=== PATIENT | male | born 1970 | race Caucasian/White ===

== ENCOUNTER 2021-06-22 20:44 | Emergency (ER) | payer OTHER ==
[~2021-06-22] VITALS: Ht 172.7 cm; Wt 120.2 kg
[2021-06-22 21:03] VITALS: BP 153/83
--- NOTE | 2021-06-22 22:00 | NUR ---
TO BED AMBULATORY
--- NOTE | 2021-06-22 22:10 | NUR ---
TOMEKA PT. IS A 50 Y/O MALE THAT CAME INTO ED WITH C/O OF RIGHT MID BACK PAIN. DENIES TRAUMA/FALL. PT. STATES THAT HE WORKS FROM HOME AND HAS BEEN SITTING IN A CHAIR FOR LONG PERIODS OF TIME. PT. RATES PAIN AT 8/10 ON THE PAIN SCALE AT THIS TIME. WHEN ASKED TO DESCRIBE PAIN, PT. STATES "PULSATING AND SHARP" AND LOCALIZED IN RIGHT MID BACK. PT. ALSO STATES "WHEN I BREATHE DEEPLY, THERE IS A SHARP PAIN IN MY BACK." DENIES N/V/D; SKIN IS PINK/WARM/DRY; AAOX4 WITH EVEN AND STEADY GAIT; HR EVEN AND REGULAR; PT DENIES ANY FEVER, CP, SOB, OR COUGH AT THIS TIME; VSS; PATIENT POSITIONED FOR COMFORT; HOB ELEVATED; BEDRAILS UP X2; BED DOWN. ER MD MADE AWARE OF PT STATUS. PMH: HTN, PSORIASIS, HYPERLIPIDEMIA AND SLEEP APNEA ALLERGIES: NKA
[2021-06-22 23:13] LABS: APPEARANCE,URINE CLEAR (CLEAR); BILIRUBIN,URINE NEGATIVE (NEGATIVE); BLOOD, URINE NEGATIVE (NEGATIVE); COLOR,URINE YELLOW (YELLOW); LEUKOCYTE ESTERASE ,URINE NEGATIVE (NEGATIVE); NITRITE, URINE NEGATIVE (NEGATIVE); UGLUCOSE NEGATIVE (NEGATIVE)
[2021-06-22 23:32] LABS: BASOPHILS # (AUTO) 0.1 K/uL (0.00-0.22); BASOPHILS % (AUTO) 0.8 % (0.0-2.0); EOSINOPHILS # (AUTO) 0.5 K/uL (0-0.4); EOSINOPHILS % (AUTO) 4.9 % (0.0-4.0); HEMATOCRIT 42.6 % (36-52); HEMOGLOBIN 14.8 g/dL (12.0-18.0); LYMPHOCYTES # (AUTO) 3.2 K/uL (2.0-11.5); LYMPHOCYTES % (AUTO) 30.8 % (20.5-51.1); MEAN CORPUSCULAR HEMOGLOBIN 32 pg (27-31); MEAN CORPUSCULAR HGB CONC 35 g/dL (33-37); MEAN CORPUSCULAR VOLUME 91.3 fL (80-94); MONOCYTES # (AUTO) 0.8 K/uL (0.8-1.0); MONOCYTES % (AUTO) 7.2 % (1.7-9.3); NEUTROPHILS # (AUTO) 5.9 K/uL (1.8-7.7); NEUTROPHILS % (AUTO) 56.3 % (42.2-75.2); PLATELET COUNT (AUTO) 268 K/uL (140-450); RED BLOOD CELL COUNT(AUTO) 4.67 MIL/uL (4.20-6.10); RED CELL DISTRIBUTION WIDTH 13.3 % (11.6-13.7); WHITE BLOOD COUNT (AUTO) 10.5 K/uL (4.8-10.8)
[2021-06-22 23:55] LABS: ALBUMIN 3.7 g/dL (3.4-5.0); ANION GAP 11.3 (8-16); CARBON DIOXIDE 28.8 mmol/L (21-32); CREATININE 0.9 mg/dL (0.6-1.3); POTASSIUM 4.1 mmol/L (3.5-5.1); TOTAL BILIRUBIN 0.3 mg/dL (0.0-1.0)
[2021-06-23] MEDS: KETOROLAC 30 MG/ML VIAL IM ONE (01:05)
[2021-06-23] MEDS ORDERED: CYCL-711 PO (03:13)
[2021-06-23 03:25] VITALS: BP 130/79
--- NOTE | 2021-06-23 03:26 | NUR ---
Patient discharged with v/s stable. Written and verbal after care instructions given and explained. Patient verbalized understanding. Ambulatory with steady gait. All questions addressed prior to discharge. Advised to follow up with PMD.
== END 2021-06-23 03:24 | disposition home or self-care (01) ==
LOC: MED 20:44
DX: M54.9 Dorsalgia, unspecified (principal); I10 Essential (primary) hypertension; R11.0 Nausea; E78.5 Hyperlipidemia, unspecified; Z79.899 Other long term (current) drug therapy
CPT/HCPCS: 36415; 71045; 80053; 81003; 84484; 85025; 93005; 96372; 99285; J1885

== ENCOUNTER 2021-09-30 11:09 | Emergency (ER) | payer OTHER, SELFPAY ==
[~2021-09-30] VITALS: Ht 172.7 cm; Wt 124.7 kg
[~2021-09-30 11:09] MED LIST: CYCL-711 PO
[2021-09-30 11:10] VITALS: BP 107/100
--- NOTE | 2021-09-30 11:17 | NUR ---
to er bed 3
--- NOTE | 2021-09-30 11:30 | NUR ---
51/M BIB SELF WITH C/O COUGH. PATIENT REPORTS HE TOOK AN AT HOME COVID TEST ON SATURDAY THAT WAS POSITIVE. PATIENT STATES HE RECENTLY WAS OUT OF TOWN LAST WEEKEND AND STATES SOME OF HIS FAMILY HE WAS WITH TESTED POSITIVE THIS WEEK. PATIENT REPORTS CONGESTION AND COUGH, DENIES CP OR SOB. REPORTS HE TALKED TO HIS PCP AND WAS TOLD TO COME TO ED STATING HE WANTED TO RECEIVE ANTIBODY TREATMENT. PATIENT DENIES N/V/D, URINARY SYMPTOMS. DENIES TAKING MEDICATION AT HOME FOR SYMPTOMS.
--- NOTE | 2021-09-30 11:48 | NUR ---
MO AND FLU SWABS COLLECTED AND HANDED TO [facility].
--- NOTE | 2021-09-30 13:07 | NUR ---
LABS COLLECTED BEDSIDE AND WALKED TO LAB.
[2021-09-30 13:28] LABS: BASOPHILS % (AUTO) 0.5 % (0.0-2.0); EOSINOPHILS # (AUTO) 0.1 K/uL (0-0.4); EOSINOPHILS % (AUTO) 2.5 % (0.0-4.0); HEMATOCRIT 40.5 % (36-52); HEMOGLOBIN 14.1 g/dL (12.0-18.0); LYMPHOCYTES # (AUTO) 1.3 K/uL (2.0-11.5); LYMPHOCYTES % (AUTO) 28.3 % (20.5-51.1); MEAN CORPUSCULAR HEMOGLOBIN 31 pg (27-31); MEAN CORPUSCULAR HGB CONC 35 g/dL (33-37); MEAN CORPUSCULAR VOLUME 89.7 fL (80-94); MONOCYTES # (AUTO) 0.8 K/uL (0.8-1.0); MONOCYTES % (AUTO) 17.6 % (1.7-9.3); NEUTROPHILS # (AUTO) 2.3 K/uL (1.8-7.7); NEUTROPHILS % (AUTO) 51.1 % (42.2-75.2); PLATELET COUNT (AUTO) 218 K/uL (140-450); RED BLOOD CELL COUNT(AUTO) 4.51 MIL/uL (4.20-6.10); WHITE BLOOD COUNT (AUTO) 4.5 K/uL (4.8-10.8)
[2021-09-30 13:36] LABS: ANION GAP 11.4 (8-16); CARBON DIOXIDE 28.2 mmol/L (21-32); CREATININE 0.8 mg/dL (0.6-1.3); POTASSIUM 3.6 mmol/L (3.5-5.1)
[2021-09-30] MEDS ORDERED: REGENERON ANTIBODY ER ORDER 1 EA MISC MC STA (13:47)
[2021-09-30] MEDS ORDERED: NON-FORMULARY ITEM 1 EA in NACL 0.9% 100 ML IV SCH (15:00)
[2021-09-30] MEDS ORDERED: CODE5SYR5 PO (17:01)
[2021-09-30 17:19] VITALS: BP 112/72
--- NOTE | 2021-09-30 17:19 | NUR ---
Patient discharged with v/s stable. Written and verbal after care instructions given FOR COVID and explained. Patient verbalized understanding. Ambulatory with steady gait. All questions addressed prior to discharge. Advised to follow up with PMD.
== END 2021-09-30 17:19 | disposition home or self-care (01) ==
LOC: MED 11:09
DX: U07.1 COVID-19 (principal); J45.909 Unspecified asthma, uncomplicated; I10 Essential (primary) hypertension
CPT/HCPCS: 36415; 71045; 80048; 84484; 85025; 87426; 87804; 93005; 96365; 99285; Q0092

== ENCOUNTER 2021-12-30 11:39 | Emergency (ER) | payer OTHER, SELFPAY ==
[~2021-12-30] VITALS: Ht 172.7 cm; Wt 127.0 kg
[~2021-12-30 11:39] MED LIST changes: +CODE5SYR5 PO
[2021-12-30 11:50] VITALS: BP 154/93
--- NOTE | 2021-12-30 12:05 | NUR ---
AMBULATE TO BED 2
--- NOTE | 2021-12-30 12:08 | NUR ---
51 Y/O M BIB SELF C/O L HIP PAIN, STARTED 12/19. PAIN 01/14 AT THIS TIME. PT STATES HE SOUGHT MEDICAL TREATMENT BEFORE TODAY, MEDICATED WITH TORODOL WITH SHORT TERM RELIEF ONLY. DENIES N/V/D; SKIN IS PINK/WARM/DRY; AAOX4 WITH EVEN AND STEADY GAIT; LUNGS CLEAR BL; HR EVEN AND REGULAR; PT DENIES ANY FEVER, CP, SOB, OR COUGH AT THIS TIME; VSS; PATIENT POSITIONED FOR COMFORT; HOB ELEVATED; BEDRAILS UP X2; BED DOWN. ER MD MADE AWARE OF PT STATUS. PMH: HTN, SLEEP APNEA, PSORIASIS MED: MELOXICAM, ATORVASTATIN, OMEGA 3, ASPIRIN 81 MG, NOVIGIL 200 MG, LISINOPRIL. NKA
[2021-12-30] MEDS ORDERED: MORPHINE SULFATE 4 MG/ML SYR IM ONE (12:15)
--- NOTE | 2021-12-30 12:25 | NUR ---
MEDICATION OF MORPHINE ORDERED. PT REPORTS THAT HE DROVE BUT HE WILL CALL SOMEONE TO PICK HIM UP. WILL MEDICATE PER ORDER.
[2021-12-30] MEDS ORDERED: ACET-8386 PO (12:35)
[2021-12-30 13:28] VITALS: BP 154/93
--- NOTE | 2021-12-30 13:28 | NUR ---
Patient discharged with v/s stable. Written and verbal after care instructions given and explained. Patient alert, oriented and verbalized understanding of instructions. Ambulatory with steady gait, WAITING IN LOBBY FOR LYFT RIDE. All questions addressed prior to discharge. ID band removed. Patient advised to follow up with PMD. Rx of HYDROCODONE/ACETAMINOPHEN given. Patient educated on indication of medication including possible reaction and side effects. Opportunity to ask questions provided and answered.
== END 2021-12-30 13:28 | disposition home or self-care (01) ==
LOC: MED 11:39
DX: S39.012A Strain of muscle, fascia and tendon of lower back, initial encounter (principal); M54.50 Low back pain, unspecified; I10 Essential (primary) hypertension; Z79.899 Other long term (current) drug therapy; X58.XXXA Exposure to other specified factors, initial encounter; Y93.89 Activity, other specified; Y92.89 Other specified places as the place of occurrence of the external cause; Y99.8 Other external cause status
CPT/HCPCS: 81002; 96372; 99283; J2270